=== PATIENT | male | born 1995 | race Two or more races ===

== ENCOUNTER 2024-08-20 22:45 | Emergency (ER) | payer OTHER ==
[~2024-08-20] VITALS: Ht 177.8 cm; Wt 93.0 kg
[2024-08-20] MEDS ORDERED: 0.9 % SODIUM CHLORIDE 1,000 ML IV STA (22:55)
[2024-08-20] MEDS ORDERED: FAMOTIDINE/PF 20 MG in 0.9 % SODIUM CHLORIDE 8 ML IV PUSH STA (22:55)
[2024-08-20] MEDS ORDERED: ONDANSETRON HCL 2 MG/ML VIAL IV STA (22:55)
[2024-08-21 00:23] LABS: HEMATOCRIT 43.8 % (39.0-48.0); HEMOGLOBIN 15.3 g/dL (13-16.00); MEAN CELL VOLUME 87.9 fL (80.0-100.00); MEAN CORPUSCULAR HEMOGLOBIN 30.8 pg (27.00-32.0); PLATELET COUNT 286 K/uL (150-450); RED BLOOD COUNT 4.98 M/uL (4.00-6.00); RED CELL DISTRIBUTION WIDTH 12.6 % (11.5-14.5)
[2024-08-21 00:46] LABS: COCAINE NEGATIVE (NEGATIVE); METHADONE NEGATIVE (NEGATIVE); OPIATES NEGATIVE (NEGATIVE); THC ( Cannabinoids) POSITIVE (NEGATIVE)
[2024-08-21 00:58] LABS: CALCIUM 9.7 mg/dL (8.5-10.1); CREATININE SERUM 1.15 mg/dL (0.70-1.30); GFR 74.67; POTASSIUM 3.41 mEq/L (3.5-5.1)
[2024-08-21] MEDS ORDERED: ZOFRAN8 MG PO (01:52)
== END 2024-08-21 01:56 ==
LOC: ER 22:45
PROVIDERS: Emergency Medicine
DX: F12.90 Cannabis use, unspecified, uncomplicated (principal); Z88.0 Allergy status to penicillin